=== PATIENT | male | born 1985 | race Hispanic/Latino ===

== ENCOUNTER 2019-01-28 08:48 | Emergency (ER) | payer OTHER ==
[2019-01-28 09:06] VITALS: BP 164/82
[2019-01-28] MEDS ORDERED: IBUPROFEN PO ONE (10:12)
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
== END 2019-01-28 10:39 | disposition home or self-care (01) ==
LOC: ED 08:48
DX: S16.1XXA Strain of muscle, fascia and tendon at neck level, initial encounter (principal); S09.90XA Unspecified injury of head, initial encounter; F17.200 Nicotine dependence, unspecified, uncomplicated; I10 Essential (primary) hypertension; Z88.8 Allergy status to other drugs, medicaments and biological substances; V89.2XXA Person injured in unspecified motor-vehicle accident, traffic, initial encounter; Y93.89 Activity, other specified; Y92.488 Other paved roadways as the place of occurrence of the external cause; Y99.8 Other external cause status
CPT/HCPCS: 99283